=== PATIENT | female | born 1980 | race Caucasian/White ===

== ENCOUNTER 2024-10-20 12:22 | Observation (INO) | payer OTHER ==
[2024-10-20 12:29] VITALS: TEMP 97.3
[2024-10-20] MEDS: ASPIRIN 81 MG PO STA (13:05)
--- NOTE | 2024-10-20 13:05 | ED ---
General Adult HPI - General Chief complaint: Chest Pain Stated complaint: Chest pain Time Seen by Provider: 10/20/24 12:45 Source: patient, RN notes reviewed Mode of arrival: ambulatory Limitations: no limitations - History of Present Illness Initial comments: Patient is a 44-year-old female present to the emergency department with chest discomfort. Onset of symptoms was yesterday. Discomfort feels like tightness. Patient does have associated dyspnea and mild nausea. There is also some tingling left arm. Patient does have some increased rest recently. Patient did have similar symptoms a few months ago and went to a different ER and was disch arged after workup. Patient has follow-up with her primary care physician. - Related Data Allergies Allergy/AdvReac Type Severity Reaction Status Date / Time No Known Allergies Allergy Verified 10/20/24 13:02 Review of Systems ROS Statement: Those systems with pertinent positive or pertinent negative responses have been documented in the HPI. ROS Other: All systems not noted in ROS Statement are negative. Constitutional: Denies: fever Eyes: Denies: eye pain ENT: Denies: ear pain Respiratory: Reports: as per HPI Cardiovascular: Reports: as per HPI, chest pain Endocrine: Denies: fatigue Gastrointestinal: Reports: nausea. 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) Past Psychological History: ADD/ADHD, Anxiety Smoking Status: Never smoker Past Alcohol Use History: None Reported Past Drug Use History: None Reported General Exam Limitations: no limitations General appearance: alert, in no apparent distress Head exam: Present: normocephalic Eye exam: Present: normal appearance Neck exam: Present: normal inspection Respiratory exam: Present: normal lung sounds bilaterally Cardiovascular Exam: Present: regular rate, normal rhythm, normal heart sounds Expanded Peripheral pulses: 2+: Radial (R), Radial (L), Posterior Tibialis (R), Posterior Tibialis (L) GI/Abdominal exam: Present: soft. Absent: tenderness Extremities exam: Present: normal inspection. Absent: pedal edema, calf tenderness Neurological exam: Present: alert Psychiatric exam: Present: normal affect, normal mood Skin exam: Present: other (Mild diffuse erythema that patient states is from a sunburn, and does appear so.) Course Vital Signs 10/20/24 10/20/24 12:25 13:06 Temperature 97.3 F L Pulse Rate 75 66 Respiratory 18 Rate Blood Pressure 108/71 107/71 O2 Sat by Pulse 100 Oximetry EKG Findings - EKG Results: EKG: interpreted by ERMD (Low QRS voltage), sinus rhythm, normal axis, normal ST/T Medical Decision Making - Medical Decision Making Was pt. sent in by a medical professional or institution (, [facility], [facility], urgent care, hospital, or skilled nursing...) When possible be specific @ -No Did you speak to anyone other than the patient for history (EMS, parent, family, police, friend...)? What history was obtained from this source @ -No Did you review nursing and triage notes (agree or disagree)? Why? @ -I reviewed and agree with nursing and triage notes Were old charts reviewed (outside hosp., previous admission, EMS record, old EKG, old radiological studies, urgent care reports/EKG's, skilled nursing records)? Report findings @ -No old charts were reviewed Differential Diagnosis (chest pain, altered mental status, abdominal pain women, abdominal pain men, vaginal bleeding, weakness, fever, dyspnea, syncope, headache, dizziness, GI bleed, back pain, seizure, CVA, palpatations, mental health, musculoskeletal)? @ -Differential Chest Pain: Stable Angina, Unstable Angina, STEMI, NSTEMI Aortic Dissection, Pneumothorax, Musculoskeletal, Esophageal Spasm GERD, Cholecystitis, Pancreatitis, Zoster, this is not meant to be an all-inclusive list. EKG interpreted by me (3pts min.). @ -As above X-rays interpreted by me (1pt min.). @ -Chest x-ray shows no acute process CT interpreted by me (1pt min.). @ -None done U/S interpreted by me (1pt. min.). @ -None done What testing was considered but not performed or refused? (CT, X-rays, U/S, labs)? Why? @ -None What meds were considered but not given or refused? Why? @ -None Did you discuss the management of the patient with other professionals (professionals i.e. Dr., PA, FIELD GAUGER, lab, RT, psych nurse, social contact worker, rn acute, teacher, public health service officer, caseworker intake)? Give summary @ -Case discussed with Dr. kovacs with [facility] who will admit covering hospital call Was smoking cessation discussed for >3mins.? @ -No Was critical care preformed (if so, how long)? @ -No Were there social determinants of health that impacted care today? How? (Homelessness, low income, unemployed, alcoholism, drug addiction, transportation, low edu. Level, literacy, decrease access to med. care, prison, rehab)? @ -No Was there de-escalation of care discussed even if they declined (Discuss DNR or withdrawal of care, Hospice)? DNR status @ -No What co-morbidities impacted this encounter? (DM, HTN, Smoking, COPD, CAD, Cancer, CVA, ARF, Chemo, Hep., AIDS, mental health diagnosis, sleep apnea, morbid obesity)? @ -None Was patient admitted / discharged? Hospital course, mention meds given and route, prescriptions, significant lab abnormalities, going to OR and other pertinent info. @ -Patient presents with chest discomfort and associated dyspnea. Second visit in the last few months. Initial evaluation unremarkable. Patient will be admitted, patient reevaluated and updated. Undiagnosed new problem with uncertain prognosis? @ -No Drug Therapy requiring intensive monitoring for toxicity (Heparin, Nitro, Insulin, Cardizem)? @ -No Were any procedures done? @ -No Diagnosis/symptom? @ -Chest pain Acute, or Chronic, or Acute on Chronic? @ -Acute Uncomplicated (without systemic symptoms) or Complicated (systemic symptoms)? @ -Default Side effects of treatment? @ -No Exacerbation, Progression, or Severe Exacerbation? @ -No Poses a threat to life or bodily function? How? (Chest pain, USA, AR, pneumonia, PE, COPD, DKA, ARF, appy, cholecystitis, CVA, Diverticulitis, Homicidal, Suicidal, threat to staff... and all critical care pts) @ -Threat to cardiac function - Lab Data Result diagrams: 10/20/24 13:02 10/20/24 13:02 Lab Results 10/20/24 10/20/24 10/20/24 Range/Units 13:02 13:02 13:02 WBC 7.30 (4.50-10.00) 10*3/uL RBC 4.22 (4.10-5.20) 10*6/uL Hgb 13.5 (12.0-15.0) g/dL Hct 39.8 (37.2-46.3) % MCV 94.3 (80.0-97.0) fL MCH 32.0 (27.0-32.0) pg MCHC 33.9 (32.0-37.0) g/dL Plt Count 469 H (140-440) 10*3/uL MPV 10.5 (9.5-12.2) fL Immature Gran % (Auto) 0.3 % Neutrophils % 64.9 % Lymphocytes % 25.3 % Monocytes % 8.9 % Eosinophils % 0.5 % Basophils % 0.1 % Immature Gran # 0.02 (0.00-0.04) 10*3/uL Neutrophils # 4.73 (1.80-7.70) 10*3/uL Lymphocytes # 1.85 (0.90-5.00) 10*3/uL Monocytes # 0.65 (0.20-1.00) 10*3/uL Eosinophils # 0.04 (0.04-0.35) 10*3/uL Basophils # 0.01 (0.00-0.10) 10*3/uL PT 10.7 (10.0-12.5) sec INR 1.0 (<1.2) APTT 26.7 (22.0-30.0) sec D-Dimer <0.17 (<0.60) mg/L FEU Sodium 139 (137-145) mmol/L Potassium 4.6 (3.5-5.1) mmol/L Chloride 102 (98-107) mmol/L Carbon Dioxide 28 (22-30) mmol/L Anion Gap 9 mmol/L BUN 11 (7-17) mg/dL Creatinine 0.72 (0.52-1.04) mg/dL Est GFR (CKD-EPI)AfAm >90 (>60 ml/min/1.73 sqM) Est GFR (CKD-EPI)NonAf >90 (>60 ml/min/1.73 sqM) Glucose 59 L (74-99) mg/dL Calcium 9.8 (8.4-10.2) mg/dL Magnesium 1.9 (1.6-2.3) mg/dL Total Bilirubin 0.7 (0.2-1.3) mg/dL AST 26 (14-36) U/L ALT 16 (4-34) U/L Alkaline Phosphatase 58 (38-126) U/L Troponin I (0.000-0.034) ng/mL NT-Pro-B Natriuret Pep 43 pg/mL Total Protein 6.9 (6.3-8.2) g/dL Albumin 4.0 (3.5-5.0) g/dL Amylase 67 (30-110) U/L Lipase 233 (23-300) U/L / Range/Units 13:02 WBC (4.50-10.00) 10*3/uL RBC (4.10-5.20) 10*6/uL Hgb (12.0-15.0) g/dL Hct (37.2-46.3) % MCV (80.0-97.0) fL MCH (27.0-32.0) pg MCHC (32.0-37.0) g/dL Plt Count (140-440) 10*3/uL MPV (9.5-12.2) fL Immature Gran % (Auto) % Neutrophils % % Lymphocytes % % Monocytes % % Eosinophils % % Basophils % % Immature Gran # (0.00-0.04) 10*3/uL Neutrophils # (1.80-7.70) 10*3/uL Lymphocytes # (0.90-5.00) 10*3/uL Monocytes # (0.20-1.00) 10*3/uL Eosinophils # (0.04-0.35) 10*3/uL Basophils # (0.00-0.10) 10*3/uL PT (10.0-12.5) sec INR (<1.2) APTT (22.0-30.0) sec D-Dimer (<0.60) mg/L FEU Sodium (137-145) mmol/L Potassium (3.5-5.1) mmol/L Chloride (98-107) mmol/L Carbon Dioxide (22-30) mmol/L Anion Gap mmol/L BUN (7-17) mg/dL Creatinine (0.52-1.04) mg/dL Est GFR (CKD-EPI)AfAm (>60 ml/min/1.73 sqM) Est GFR (CKD-EPI)NonAf (>60 ml/min/1.73 sqM) Glucose (74-99) mg/dL Calcium (8.4-10.2) mg/dL Magnesium (1.6-2.3) mg/dL Total Bilirubin (0.2-1.3) mg/dL AST (14-36) U/L ALT (4-34) U/L Alkaline Phosphatase (38-126) U/L Troponin I <0.012 (0.000-0.034) ng/mL NT-Pro-B Natriuret Pep pg/mL Total Protein (6.3-8.2) g/dL Albumin (3.5-5.0) g/dL Amylase (30-110) U/L Lipase (23-300) U/L Disposition Clinical Impression: Chest pain Disposition: ADMITTED IP TO THIS HOSP Is patient prescribed a controlled substance at d/c from ED?: No Referrals: Rhett Soto MD [Primary Care Provider] - 1-2 days Time of Disposition: 14:50
[2024-10-20] MEDS: NITROGLYCERIN OINT 1 INCH/GM PACKET TOPICAL STA (13:06)
[2024-10-20 13:27] LABS: Basophils # (A) 0.01 10*3/uL (0.00-0.10); Basophils % (A) 0.1 %; Eosinophils # (A) 0.04 10*3/uL (0.04-0.35); Eosinophils % (A) 0.5 %; HCT 39.8 % (37.2-46.3); HGB 13.5 g/dL (12.0-15.0); Lymphocytes # (A) 1.85 10*3/uL (0.90-5.00); Lymphocytes % (A) 25.3 %; MCHC 33.9 g/dL (32.0-37.0); MCV 94.3 fL (80.0-97.0); Mean Platelet Volume 10.5 fL (9.5-12.2); Monocytes # (A) 0.65 10*3/uL (0.20-1.00); Monocytes % (A) 8.9 %; Neutrophils # (A) 4.73 10*3/uL (1.80-7.70); Neutrophils % (A) 64.9 %; Platelet Count 469 10*3/uL (140-440); RBC 4.22 10*6/uL (4.10-5.20); RDW 11.9 % (11.5-14.5)
[2024-10-20 13:35] LABS: ALT 16 U/L (4-34); African American GFR (CKD) >90 (>60 ml/min/1.73 sqM); Amylase 67 U/L (30-110); Anion Gap 9 mmol/L; Blood Urea Nitrogen 11 mg/dL (7-17); Calcium 9.8 mg/dL (8.4-10.2); Carbon Dioxide 28 mmol/L (22-30); Chloride 102 mmol/L (98-107); Glucose 59 mg/dL (74-99); Lipase 233 U/L (23-300); Non-African American GFR(CKD) >90 (>60 ml/min/1.73 sqM); Sodium 139 mmol/L (137-145); Total Bilirubin 0.7 mg/dL (0.2-1.3); Total Protein 6.9 g/dL (6.3-8.2)
[2024-10-20 13:40] LABS: AST 26 U/L (14-36); Alkaline Phosphatase 58 U/L (38-126); Magnesium 1.9 mg/dL (1.6-2.3); Potassium 4.6 mmol/L (3.5-5.1)
[2024-10-20 13:43] LABS: NT-Pro-B-Type Natriuretic Pept 43 pg/mL
[2024-10-20 13:44] LABS: Partial Thromboplastin Time 26.7 sec (22.0-30.0); Prothrombin Time 10.7 sec (10.0-12.5)
--- NOTE | 2024-10-20 13:54 | XR ---
EXAMINATION TYPE: XR chest 2V DATE OF EXAM: 10/20/2024 1:35 PM COMPARISON: None CLINICAL INDICATION: Female, 44 years old with history of Chest Pain; [facility] TECHNIQUE: XR chest 2V Frontal and lateral views of the chest. FINDINGS: Lungs/Pleura: There is no evidence of pleural effusion, focal consolidation, or pneumothorax. Pulmonary vascularity: Unremarkable. Heart/mediastinum: Cardiomediastinal silhouette is unremarkable. Musculoskeletal: No acute osseous pathology. IMPRESSION: No acute cardiopulmonary disease/process. [facility], Workstation: [facility], 10/20/2024 1:52 PM
[2024-10-20] MEDS ORDERED: NITROGLYCERIN SL TABS 0.4 MG TAB SUBLINGUAL PRN (14:50)
[2024-10-20] MEDS: ENOXAPARIN 40 MG/0.4 ML SYRINGE SQ STA (15:20)
--- NOTE | 2024-10-20 15:25 | P.HPIM ---
History of Present Illness H&P Date: 10/20/24 History of present illness; Patient is a 44-year-old female with ADHD, and history of anxiety, who presents with chest discomfort. She states her symptoms began yesterday with chest tightness. She states that tightness is substernal and will have some tingling and numbness radiating down her left arm that is intermittent. She states she has no known triggers other than worsening with increased stress and anxiety. She does states she had some dyspnea and nausea which have seemed to improve at this time. Currently patient is asymptomatic, with symptoms resolving as she was driving to the hospital. She does endorse similar event a few months ago which she feels was brought on by anxiety. Currently she denies fever, chest pain, palpitations, nausea, vomiting, abdominal pain, myalgia, dysuria. Spoke with the ER physician, patient admission was accepted by internal medicine service for treatment. REVIEW OF SYSTEMS: Pertinent positives and negatives noted in HPI. PHYSICAL EXAMINATION: VITAL SIGNS: Reviewed GENERAL: Resting comfortably in bed. Obese. EYES: PERRL, no scleral injection or icterus. HENT: Normocephalic, atraumatic, hearing grossly intact, moist mucous membranes. CARDIOVASCULAR: S1 and S2 present. No murmurs, rubs, or gallops. PULMONARY: Chest is clear to auscultation, no wheezing, rhonchi, or crackles. ABDOMEN: Soft, nontender, nondistended. No palpable organomegaly. NEUROLOGICAL: Alert and oriented. Gross neurological examination with no apparent focal deficits. EXTREMITIES: No pedal edema. SKIN: No apparent rashes. ER FINDINGS: Labs significant for CBC is unremarkable, D-dimer<0.17, CMP is unremarkable, troponin <0.012, proBNP 43, amylase and lipase are WNL EKG independently interpreted showed sinus rhythm heart rate of 71, QTc 387, no ST segment elevation or depression seen, no T-wave inversions seen. Chest x-ray done independently interpreted showed no acute cardiopulmonary process. ASSESSMENT AND PLAN: In summary, patient is a 44-year-old female with no known medical history who presents with chest discomfort. #Atypical Chest pain -trend troponins, initial troponin <0.012 Continue cardiac monitoring -Ordered TSH with reflex T4, HbA1c, Lipid panel -given aspirin 325, start 81mg qd - Cardiology consulted Chronic Medical Conditions: ADHD Resume home medication DVT ppx: Subq Lovenox 40 meq daily Code status: Full code F: P.o. E: Replete as needed N: Heart healthy diet A: Ambulatory Anticipated discharge time and place: Tomorrow Estuardo Sosa MD Internal Medicine Resident, PGY1 Dictation was produced using tribr dictation software. Please excuse any grammatical, word or spelling errors. I saw and evaluated the patient during the rea and critical portions of this encounter, and discussed the case in detail with the resident author of this note, I agree with the Assessment and Plan, and my changes, if any, are highlighted in blue. 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) Past Psychological History: ADD/ADHD, Anxiety Smoking Status: Never smoker Past Alcohol Use History: None Reported Past Drug Use History: None Reported Medications and Allergies Home Medications Medication Instructions Recorded Confirmed Type Dextroamphetamine/Amphetamine 20 mg PO DAILY 10/20/24 10/20/24 History [Adderall Xr 20 mg Capsule] Semaglutide [Wegovy] 1.7 mg SQ MO@2100 10/20/24 10/20/24 History estradioL [Estrace] 0.5 mg PO DAILY 10/20/24 10/20/24 History Allergies Allergy/AdvReac Type Severity Reaction Status Date / Time No Known Allergies Allergy Verified 10/20/24 14:57 Physical Exam Osteopathic Statement: *. No significant issues noted on an osteopathic structural exam other than those noted in the History and Physical/Consult. Vitals: Vital Signs Temp Pulse Resp BP Pulse Ox 10/20/24 14:30 66 16 102/65 98 10/20/24 13:06 66 107/71 10/20/24 12:25 97.3 F L 75 18 108/71 100 Intake and Output 10/19/24 10/20/24 10/20/24 22:59 06:59 14:59 Other: Weight 92.079 kg Results CBC & Chem 7: 10/20/24 13:02 10/20/24 13:02 Labs: Abnormal Lab Results - Last 24 Hours (Table) 10/20/24 10/20/24 Range/Units 13:02 13:02 Plt Count 469 H (140-440) 10*3/uL Glucose 59 L (74-99) mg/dL
[2024-10-20 17:02] VITALS: RESP 18
[2024-10-20 17:48] VITALS: BP 110/60; PULSE 75
[2024-10-20] MEDS: NITROGLYCERIN OINT 1 INCH/GM PACKET TOPICAL SCH (17:50)
--- NOTE | 2024-10-21 07:59 | P.DS ---
Providers Date of admission: 10/20/24 14:51 Expected date of discharge: 10/20/24 Attending physician: Ean Bacon MD Consults: 10/20/24 14:50 Consult Physician Urgent Consulting Provider: Sebastián Mercado Consult Reason/Comments: cp Do you want consulting provider notified?: Yes Primary care physician: Sharon Hospital Course: Patient left AGAINST MEDICAL ADVICE on 10/20/2024 at 5:59 PM. Per documentation in chart patient was admitted for reports of chest pain on 10/20/24 at 2:50 PM and left AGAINST MEDICAL ADVICE on 10/20/2024 at 5:59 PM.. I did not evaluate this patient during this day nor participate in patient's care. Patient Condition at Discharge: Undetermined Plan - Discharge Summary New Discharge Prescriptions: No Action Dextroamphetamine/Amphetamine [Adderall Xr 20 mg Capsule] 20 mg PO DAILY estradioL [Estrace] 0.5 mg PO DAILY Semaglutide [Wegovy] 1.7 mg SQ MO@2100 Discharge Medication List Dextroamphetamine/Amphetamine [Adderall Xr 20 mg Capsule] 20 mg PO DAILY 10/20/24 [History] Semaglutide [Wegovy] 1.7 mg SQ MO@2100 10/20/24 [History] estradioL [Estrace] 0.5 mg PO DAILY 10/20/24 [History] Follow up Appointment(s)/Referral(s): Rhett Soto MD [Primary Care Provider] - 1-2 days Sebastián Mercado MD [STAFF PHYSICIAN] - 1 Week Discharge Disposition: LEFT AGAINST MEDICAL ADVICE
[2024-10-21] MEDS ORDERED: ASPIRIN 325 MG TAB PO SCH (09:00)
[2024-10-21] MEDS ORDERED: NON FORMULARY DRUG (Dextroamphetamine/Amphetamine [Adderall Xr 20 Mg Capsule] 20 MG Cap.Er PO SCH (09:00)
[2024-10-21] MEDS ORDERED: ASPIRIN 81 MG PO SCH (09:00)
== END 2024-10-20 18:00 | disposition left against medical advice (07) ==
LOC: EC 12:22 → 6NMEDSUR 14:51
PROVIDERS: ADMIT Internal Medicine; ATTEND Internal Medicine
DX: R07.89 Other chest pain (principal); Z53.29 Procedure and treatment not carried out because of patient's decision for other reasons; F41.9 Anxiety disorder, unspecified; F90.9 Attention-deficit hyperactivity disorder, unspecified type; Z79.899 Other long term (current) drug therapy
CPT/HCPCS: 99285; 36415; 93005; 85379; 83880; 80053; 82150; 83690; 83735; 84484; 85025; 85610; 85730; 71046; G0378